=== PATIENT | male | born 1955 | race Caucasian/White ===

== ENCOUNTER 2018-09-12 07:35 | Emergency (ER) | payer MEDICARE, BC ==
--- NOTE | 2018-09-12 07:36 | ER Report ---
History and Physical Time Seen By MD: 07:36 HPI/ROS CHIEF COMPLAINT: Sinus headache HISTORY OF PRESENT ILLNESS: Patient is a 63 year male who presents emergency department with complaint of sinus headache. Patient has had problems with his sinuses since 2014 and states she has chronic sinusitis. He is currently traveling way back to [place] to visit with his sister and father for the . States that when he was at the hotel last night he was feeling well but this morning he woke up with severe pain that is typical of his sinus flares. He reports some tearing to the right eye along with pain to the right maxillary sinus. He denies any fevers or chills. He states he has tramadol to take for pain. Typically he states he's prescribed a Z-Gordon. He started using Flonase this morning when his symptoms began. REVIEW OF SYSTEMS: ENT: Sinus pain no nasal discharge. Respiratory: No cough, no dyspnea. Cardiovascular: No chest pain, no palpitations. Gastrointestinal: No vomiting, no abdominal pain. Allergies: Coded Allergies: fentanyl (Verified Allergy, Mild, RESTLESSNESS, 09/12/18) Past Medical/Surgical History History of chronic sinusitis Smoking Status: Current: Every Day Smoker Constitutional Vital Sign - Last 24 Hours 09/12/18 07:39 Temp 97.7 Pulse 91 Resp 24 B/P (MAP) 187/115 Pulse Ox 94 O2 Delivery Room Air Physical Exam General Appearance: Alert, no distress. Eyes: Pupils equal and round no pallor or injection. ENT, Mouth: Ears: Tympanic membranes are normal. Nose: No bleeding. Mouth: Mucous membranes are moist. Throat: No erythema or exudates there is no tonsillar hypertrophy and uvula is midline. Musculoskeletal: Neck is supple non tender, no adenopathy. Skin: Warm and dry, no rashes. Medical Decision Making ED Course/Re-evaluation ED Course Plan at this time will be to start the patient on a Z-Gordon have him continue his Flonase. Use tramadol for pain Decision to Disposition Date: Sep 12, 2018 Decision to Disposition Time: 07:54 Depart Departure Latest Vital Signs Vital Signs Date Time Temp Pulse Resp B/P (MAP) Pulse Ox O2 Delivery O2 Flow Rate FiO2 09/12/18 07:39 97.7 91 24 187/115 94 Room Air Impression: Primary Impression: Sinusitis Condition: Improved Disposition: HOME OR SELF-CARE New Scripts Azithromycin (ZITHROMAX) 250 Mg Tablet 0 PO QDAY, #6 TAB 0 Refills 2 tablets on day #1 then 1 tablet by mouth daily until prescription complete Prov: JOAO BRODERICK MD 09/12/18 Departure Forms: ER Transition Record, Medications Reconciliation, Patient Portal Information Patient Instructions: Sinusitis (GEN) Additional Instructions: Continue your Flonase as directed for the next 14 days. Usual tramadol for pain Get your prescription filled and take as directed. Continue all other outpatient medications. Problem Qualifiers Primary Impression: Sinusitis Sinusitis location: unspecified location Chronicity: acute Recurrence: recurrent Qualified Codes: J01.91 - Acute recurrent sinusitis, unspecified JOAO BRODERICK MD Sep 12, 2018 07:36
[2018-09-12] MEDS ORDERED: AZIT-1 PO (07:58)
[2018-09-12 08:03] VITALS: BP 179/113
== END 2018-09-12 08:09 | disposition home or self-care (01) ==
LOC: ER 08:00
DX: J01.91 Acute recurrent sinusitis, unspecified (principal)
CPT/HCPCS: 99281